=== PATIENT | male | born 1985 | race Caucasian/White ===

== ENCOUNTER 2024-12-16 10:01 | Outpatient (REF) | payer BC, SELFPAY ==
--- OUTSIDE RECORDS SUMMARY | 2024-12-16 10:59 | XMS_ITS | Clinical Summary ---
Author Organization [facility] Address [address] [place] [address] Care Team Providers Care Mastic Floor Layer Name Role Phone Unavailable Primary Care Provider Unavailabl e Social History Tobacco Use Types Packs/Day Years Used Date Smoking Tobacco: Never Assessed Sex and Gender Information Value Date Recorded Sex Assigned at Not on file Gender Identity Not on file Sexual Orientation Not on file Job Start Date Occupation Industry Not on file Not on file Not on file Plan of Treatment Health Maintenance Due Date Last Done Comments Hepatitis B Vaccines (1 of 3 - 3-dose series) 1987 Hepatitis C Screening 1987 Depression Screening 1999 Preventative Health Evaluation 2005 DTap / Tdap / Td (1 - Tdap) 2006 COVID-19 Vaccine (2023-2 5 season) 2024 10/25/2020 Influenza Vaccine (#1) 2024 07/19/2021 Pneumococcal Vaccine Aged Out No long er eligible based on patient's age to complete this topic RSV Ped < 20 months Aged Out No longe r eligible based on patient's age to complete this topic
== END 2024-12-16 10:02 | disposition home or self-care (01) ==
LOC: HO.BBR 10:01
PROVIDERS: PCP Internal Medicine; Visit Provider Urology
DX: D75.1 Secondary polycythemia (principal)
CPT/HCPCS: 85014; 85018; 99195

== ENCOUNTER 2025-03-20 09:58 | Outpatient (REF) | payer BC, SELFPAY ==
--- OUTSIDE RECORDS SUMMARY | 2025-03-20 11:03 | XMS_ITS | Clinical Summary ---
Author Organization [address] Address [address] [place] [id number] Phone Care Team Providers Care Blower And Compressor Assembler Name Role Phone Sami Haney MD Primary Care Provider [phone] Allergies Active Allergy Reactions Criticality Noted Date Comments Avocado Unknown 01/04/2022 Nut - Unspecified Hives 07/19/2021 Shellfish Derived Unknown 01/04/2022 Tree Nuts Hives 01/04/2022 Medications dupilumab (Dupixent Pen) 300 mg/2 mL pen Inject into the skin. Active testosterone cypionate (DEPO-TESTOTERO NE) 200 mg/mL injection INJECT 0.25 ML INTRAMUSCULAR ROUTE TWICE A WEEK Active albuterol HFA (PROAIR HFA ; PROVENTIL HFA ; VENTOLIN HFA) 90 mcg/actuation inhaler Inhale 2 puffs by mouth every 4 (four) hours if needed. 4 Active EPINEPHrine (EPIPEN) 0.3 mg/0.3 mL injection INJECT INTO OUTER THIGH NEEDED FOR ANAPHYLAXIS AND THEN CALL 911 4 Active tadalafiL (CIALIS) 20 mg tablet TAKE 1 TABLET BY MOUTH 1 HOUR BEFORE INTIMACY NEEDED 5 Active semaglutide (Wegovy) 0.25 mg/0.5 mL injection penIndications: Class 2 obesity due to excess calories without serious comorbidity with body mass index (BMI) of 35.0 to 35.9 in adult Inject 0.25 mg under the skin every 7 (seven) days. 2 mL 1 5 Active Active Problems Problem Noted Date Diagnosed Date Eosinophilic esophagitis 03/23/2023 Onychomycosis 03/04/2022 Immunizations Name Administration Dates Next Due Influenza Quadravalent, MDCK , 0.5ml, preservative free (Flucelvax) 6mo and older 07/19/2021 Influenza trivalent, MDCK, 0 .5mL, preservative free (Flucelvax) 6mo and older 08/21/2024 Influenza, Unspecified 05/31/2023 [employer] SARS-CoV-2 COVID -19, vector-nr, [id number], preservative free 10/25/2020 MMR, measles mumps and rubel la Live (Priorix; M-M-R II) 12mo and older 02/05/2024 Tdap Tetanus diptheria acell ular pertussis (Boostrix; Adacel) 7yo and older 05/03/2023,04/21/2023 Surgical History Surgery Date Site/Laterality Comments WRIST SURGERY 2017 Left PROCEDURE: HISTORICAL WRIST SURGERY Medical History Medical History Date Comments Mild intermittent asthma, uncomplicated DX:Mild intermittent asthma, uncomplicated Family History Medical History Relation Name Comments No Known Problems Father No Known Problems Maternal Grandmother No Known Problems Mother No Known Problems Sister Relation Name Status Comments Father Alive Maternal Grandfather Maternal Grandmother Alive Mother Alive Paternal Grandfather Paternal Grandmother Sister Alive Social History Tobacco Use Types Packs/Day Years Used Date Smoking Tobacco: Never Smokeless Tobacco: Never Tobacco Cessation:Counseling Given: Not Answered Alcohol Use Standard Drinks/Week Comments Yes 2 (1 standard drink = 0.6 oz pur e alcohol) Sex and Gender Information Value Date Recorded Sex Assigned at Not on file Legal Sex Male 10:42 AM EST Gender Identity Not on file Sexual Orientation Not on file Obstetrics History Last Filed Vital Signs Vital Sign Reading Time Taken Comments Blood Pressure 124/69 08/21/2024 9:04 AM EST Pulse 67 08/21/2024 9:04 AM EST Temperature - - Respiratory Rate - - Oxygen Saturation - - Inhaled Oxygen Concentration - - Weight 113 kg (250 lb) 08/21/2024 9:04 AM EST Height 177.8 cm (5' 10 ) 08/21/2024 9:04 AM EST Body Mass Index 35.87 08/21/2024 9:04 AM EST Plan of Treatment Health Maintenance Due Date Last Done Comments Hepatitis B Vaccines (1 of 3 - 19+ 3-dose series) 2006 HIV Screening 06/26/2022 Depression Screening 07/17/2024 Influenza Vaccine (#1) 2025 , 05/31/2023, 07/19/2021 Social Influencers of Health Screening 08/21/2025 08/21/2024 Cholesterol Screening (Lipid Panel) 08/21/2029 08/21/2024, 08/17/2023 DTaP,Tdap,and Td Vaccines (3 - Td or Tdap) 05/03/2033 05/03/2023, 04/21/2023 COVID-19 Vaccine Discontinued 08/06/2021, 10/25/2020 MMR Vaccines Aged Out 02/05/2024 No longer eligi ble based on patient's age to complete this topic Hepatitis C Screening Completed 08/22/2024 HIB Vaccines Aged Out No longer eligi ble based on patient's age to complete this topic HPV Vaccines Aged Out No longer eligi ble based on patient's age to complete this topic Hepatitis A Vaccines Aged Out No long er eligible based on patient's age to complete this topic IPV Vaccines Aged Out No longer eligi ble based on patient's age to complete this topic Meningococcal ACWY Vaccine Aged Out N o longer eligible based on patient's age to complete this topic Meningococcal B Vaccine Aged Out No l onger eligible based on patient's age to complete this topic Pneumococcal Vaccine: Pediatrics (0 to 5 Years) and At-Risk Patients (6 to 49 Years) Aged Out No longer eligible based on patient's age to complete this topic RSV Immunization Patients Under 20 months Aged Out No longer eligible based on patient's age to complete this topic Varicella Vaccines Aged Out No longer eligible based on patient's age to complete this topic Procedures Procedure Name Priority Date/Time Associated Diagnosis Comments CBC WITH AUTO DIFFERENTIAL Routine 01/13/2025 4:18 PM EDT Testicular hypofunction CBC AND DIFFERENTIAL Routine 01/13/2025 4:18 PM EDT Testicular hypofunction TESTOSTERONE FREE, BIOAVAILABLE AND TOTAL Routine 01/13/2025 4:18 PM EDT Testicular hypofunction HEPATITIS PANEL, ACUTE WITH REFLEX TO CONFIRMATION Routine 08/22/2024 11:23 AM EST Screen for STD (sexually transmitted disease) Transaminitis LIPID PANEL WITH REFLEX TO DIRECT LDL Routine 08/21/2024 10:35 AM EST Class 2 obesity due to excess calories without serious comorbidity with body mass index (BMI) of 35.0 to 35.9 in adult from Last 3 Months or Most Recently Relevant to Health Maintenance Results * (ABNORMAL) Testosterone free, bioavailable and total (01/13/2025 4:18 PM EDT) Testosterone >1,500(H ) 229 - 902 ng/dL LAB CHEMISTRY METHOD 01/13/2025 8:54 PM EDT [facility] Comment:Results verified by repeat testing Testosterone, Free LAB CHEMISTRY METHOD 01/13/2025 8:54 PM [facility] Comment:Unable to Calculate Testosterone, Bioavailable LAB CHEMISTRY METHOD 01/13/2025 8:54 PM T [facility] Comment:Unable to Calculate Sex Hormone Binding 10.3 See Comment nmol/L LAB CHEMISTRY METHOD 01/13/2025 8:54 PM EDT [facility] Comment: FEMALES: pre-menopausal 10.8 - >180 post-menopausal 23.2 - 159.1 MALES: 21-49 years 14.6 - 94.6 50-89 years 21.6 - 113.1 CHILDREN: No established reference range Over the counter supplements containing high doses of biotin may interfere with this assay. If interference is suspected, patients should be retested after refraining from biotin supplements for 72 hours. Albumin 4.3 3.2 - 5.0 g/dL LAB CHEMISTRY METHOD 01/13/2025 8:54 PM EDT [facility] Blood Venous blood specimen / Unknown Venipuncture / Unknown 01/13/2025 4:18 PM EDT 01/13/2025 4:18 PM EDT us Serena A Josefina FORM MAKER LAB BLOOD ORDERABLES Adelina l Result [facility] [address] [place] [address], * (ABNORMAL) CBC auto differential (01/13/2025 4:18 PM EDT) [facility] Signature WBC 10.3 4.8 - 10.8 K/mcL LAB HEMETOLOGY METHOD 01/13/2025 6:29 PM EDT [facility] RBC 5.90(H) 4.50 - 5.50 M/mcL LAB HEMETOLOGY METHOD 01/13/2025 6:29 PM EDT [facility] Hemoglobin 16.6 13.5 - 17.5 g/dL LAB HEMETOLOGY METHOD 01/13/2025 6:29 PM EDT [facility] Hematocrit 50.7 42.0 - 54.0 % LAB HEMETOLOGY METHOD 01/13/2025 6:29 PM EDT [facility] MCV 86.7 79.0 - 98.0 FL LAB HEMETOLOGY METHOD 01/13/2025 6:29 PM EDT [facility] MCH 28.4 27.0 - 32.0 pcg LAB HEMETOLOGY METHOD 01/13/2025 6:29 PM EDT [facility] MCHC 32.7 32.0 - 37.0 g/dL LAB HEMETOLOGY METHOD 01/13/2025 6:29 PM EDT [facility] RDW 12.7 11.0 - 15.0 % LAB HEMETOLOGY METHOD 01/13/2025 6:29 PM EDT [facility] Platelets 244 130 - 400 K/mcL LAB HEMETOLOGY METHOD 01/13/2025 6:29 PM EDT [facility] MPV 10.8 7.0 - 11.0 FL LAB HEMETOLOGY METHOD 01/13/2025 6:29 PM EDT [facility] NRBC 0.0 <1.0 % LAB [facility]OLOGY [facility] NR[facility] Absolute 0.00 <0.10 K/mcL LAB HEMETOLOGY METHOD 01/13/2025 6:29 PM [facility] Neutrophils Relative 70.0 % LAB HEMETOLOGY METHOD 01/13/2025 6:29 PM [facility] Lymphocytes Relative 15.3 % LAB HEMETOLOGY METHOD 01/13/2025 6:29 PM [facility] Monocytes Relative 9.9 % LAB HEMETOLOGY METHOD 01/13/2025 6:29 PM [facility] Eosinophils Relative 3.8 % LAB HEMETOLOGY METHOD 01/13/2025 6:29 PM [facility] Basophils Relative 0.5 % LAB HEMETOLOGY METHOD 01/13/2025 6:29 PM [facility] Immature Granulocytes Relative 0.5 % LAB HEMETOLOGY METHOD 01/13/2025 6:29 PM [facility] Neutrophils Absolute 7.24(H) 1.50 - 7.00 K/mcL LAB HEMETOLOGY METHOD 01/13/2025 6:29 PM [facility] Lymphocytes Absolute 1.58 1.00 - 5.00 K/mcL LAB HEMETOLOGY METHOD 01/13/2025 6:29 PM [facility] Monocytes Absolute 1.02(H) 0.20 - 1.00 K/mcL LAB HEMETOLOGY METHOD 01/13/2025 6:29 PM [facility] Eosinophils Absolute 0.39 0.00 - 0.50 K/mcL LAB HEMETOLOGY METHOD 01/13/2025 6:29 PM [facility] Basophils Absolute 0.05 0.00 - 0.20 K/mcL LAB HEMETOLOGY METHOD 01/13/2025 6:29 PM EDT [facility] Immature Granulocytes Absolute 0.05(H) 0.00 - 0.03 K/mcL LAB HEMETOLOGY METHOD 01/13/2025 6:29 PM EDT [facility] Blood Venous blood specimen / Unknown Venipuncture / Unknown 01/13/2025 4:18 PM EDT 01/13/2025 4:18 PM EDT Serena Rocha FORM MAKER LAB BLOOD ORDERABLES Adelina l Result Performing Organization Address City/[facility]/ZIP Co de Phone Number [facility] [address] [place] [address], [place] [phone] * Hepatitis panel, acute with reflex to confirmation (08/22/2024 11:23 AM EST) Hepatitis B Surface Ag Negative Negative LAB CHEMISTRY METHOD 08/22/2024 3:36 PM EST [facility] Hepatitis A Antibody IgM Negative Negative LAB CHEMISTRY METHOD 08/22/2024 3:36 PM EST [facility] Hep B Core IgM Negative Negative LAB CHEMISTRY METHOD 08/22/2024 3:36 PM EST [facility] Hepatitis C Antibody Negative Negative LAB CHEMISTRY METHOD 08/22/2024 3:36 PM EST [facility] Blood Venous blood specimen / Unknown Venipuncture / Unknown 08/22/2024 11:23 AM EST 08/22/2024 11:23 AM EST Sami Haney MD LAB BLOOD ORDERABLES Final Resu lt [facility] [address] [place] [address], [place] [phone] * (ABNORMAL) Lipid panel with reflex to direct LDL (08/21/2024 10:35 AM EST) Cholesterol 197 0 - 200 mg/dL LAB CHEMISTRY METHOD 08/21/2024 7:02 PM [facility] Triglycerides 107 0 - 150 mg/dL LAB CHEMISTRY METHOD 08/21/2024 7:02 PM [facility] HDL 51 >=40 mg/dL LAB CHEMISTRY METHOD 08/21/2024 7:02 PM [facility] LDL Calculated 125(H) 0 - 100 mg/dL LAB CHEMISTRY METHOD 08/21/2024 7:02 PM [facility] VLDL Cholesterol Wilmer 21.4 mg/dL LAB CHEMISTRY METHOD 08/21/2024 7:02 PM [facility] Non HDL Chol. (LDL+VLDL) 146(H) <145 mg/dL LAB CHEMISTRY METHOD 08/21/2024 7:02 PM [facility] Chol/HDL Ratio 3.9 0.0 - 4.4 LAB CHEMISTRY METHOD 08/21/2024 7:02 PM [facility] Blood Venous blood specimen / Unknown Venipuncture / Unknown 08/21/2024 10:35 AM EST 08/21/2024 10:35 AM EST Sami Haney MD LAB BLOOD ORDERABLES Final Resu lt [facility] [address] [place] [address], from Last 3 Months or Most Recently Relevant to Health Maintenance Insurance [facility] Care Teams Blower And Compressor Assembler Relationship Specialty Start Date End Date Sami Haney MD [address] [place], [place] [address]sus[place] [address] PCP - General Internal Medicine 07/05/21
--- OUTSIDE RECORDS SUMMARY | 2025-03-20 11:03 | XMS_ITS ---
Author Name [facility] ([place], [place]) Organization Unknown Results Test Name/Text Value Interpretation Date Range Source BETA-HCG QUANT TUMOR MARKER 16.0 IU/L Above high normal 06/16 0 - 3 [facility] TESTOSTERONE 733.0 ng/dL Normal 06/29/2023 175 - 800 [facility] LUTEINIZING HORMONE 0.42 mIU/mL Normal 06/29/2023 [facility] FOLLICLE STIM HORMONE 2.79 mIU/mL Normal 06/29/2023 [facility] ESTRADIOL 58.0 pg/mL Normal 06/29/2023 [facility] Problems Problem Status Onset Date Problem Type Date of Resoluti on Source Low testosterone active 2023-06-29 ProblemAct C [facility] Encounters Encounter Type Encounter Reason Primary Diagnosis Location Date Ambulatory Other specified abnormal findings of blo Other specified abnormal findings of blood chemistry [facility] 07/06/2023 Ambulatory Testicular hypofunction Testicular hypofunction [facility] 06/29/2023 Ambulatory Testicular hypofunction Testicular hypofunction [facility] 06/29/2023 Care Team Organization Name Specialty Phone Email Start Date End Da te [facility] NO PCP Primary Care 06/29/2023 [facility] Jared Rushing Primary Care 11/21/202203/04 [facility] Sherie Marshall Primary Care 09/21/202202/14 [facility] Dana Freeman Primary Care 05/24/202202/14
--- OUTSIDE RECORDS SUMMARY | 2025-03-20 11:03 | XMS_ITS | Clinical Summary ---
Author Organization [facility] Address [address] [place] [address] Care Team Providers Care Bicycle Ii Assembler Name Role Phone Unavailable Primary Care Provider [...] Td (1 - Tdap) 2006 COVID-19 Vaccine ( - 2024-2 6 season) 2025 10/25/2020 Influenza Vaccine (#1) 2025 07/19/2021 Pneumococcal Vaccine Aged Out No long er eligible based on patient's age to complete this topic RSV Ped < 20 months Aged Out No longe r eligible based on patient's age to complete this topic
--- OUTSIDE RECORDS SUMMARY | 2025-03-20 11:03 | XMS_ITS | Clinical Summary ---
Author Organization [facility] Address [address] [place] [address] Care Team Providers Care Tip Cementer Name Role Phone Pcp, No MD Primary Care Provider Unavailabl e Medications clomiPHENE (CLOMID) 50 mg tablet Take 1 tablet by mouth in the morning. 04/28/2023 Active chorionic gonadotropin (PREGNYL) 10,000 unit injection 05/18/2023 Acti ve Active Problems Problem Noted Date Diagnosed Date Low testosterone 06/29/2023 Social History Tobacco Use Types Packs/Day Years Used Date Smoking Tobacco: Never Smokeless Tobacco: Never Tobacco Cessation:Counseling Given: Not Answered Sex and Gender Information Value Date Recorded Sex Assigned at Not on file Legal Sex Male 12:25 PM EDT Gender Identity Not on file Sexual Orientation Not on file Last Filed Vital Signs Vital Sign Reading Time Taken Comments Blood Pressure 125/74 06/29/2023 10:02 AM EST Pulse 78 06/29/2023 10:02 AM EST Temperature - - Respiratory Rate - - Oxygen Saturation - - Inhaled Oxygen Concentration - - Weight 104 kg (230 lb) 07/06/2023 12:00 PM EST Height 177.8 cm (5' 10 ) 07/06/2023 12:00 PM EST Body Mass Index 33 07/06/2023 12:00 PM EST Plan of Treatment Health Maintenance Due Date Last Done Comments HIV Screening 1987 Hepatitis C Screening 2005 Hepatitis B Vaccines (1 of 3 - 19+ 3-dose series) 2006 COVID-19 Vaccine (2 - 2024-2 6 season) 2025 10/25/2020 Influenza Vaccine (#1) 2025 08/17/2022 DTaP,Tdap,and Td Vaccines (2 - Td or Tdap) 04/21/2033 04/21/2023 Zoster Vaccines (1 of 2) 2037 HPV Vaccines Aged Out No longer eligi ble based on patient's age to complete this topic Hepatitis A Vaccines Aged Out No long er eligible based on patient's age to complete this topic MMR Vaccines Aged Out No longer eligi ble based on patient's age to complete this topic Meningococcal Vaccine Aged Out No shauna chaitanya eligible based on patient's age to complete this topic Pneumococcal Vaccine: Pediat rics (0 to 5 Years) and At-Risk Patients (6 to 49 Years) Aged Out No longer eligi ble based on patient's age to complete this topic Insurance [employer] - OUT OF STATE Care Teams Tip Cementer Relationship Specialty Start Date End Date Jessica Samuels MD [address] [place] [address] PCP - General Internal Medicine 06/28/23
--- OUTSIDE RECORDS SUMMARY | 2025-03-20 11:03 | XMS_ITS | Encounter Summary ---
Author Organization [facility] Address [address] [place] [address] Care Team Providers Care Adjustment Clerk Name Role Phone Sami Haney MD Primary Care Provider [phone] Encounter Details Date Type Department Care Team (Late st Contact Info) Description 12/02/2024 Lab Requisition [facility] - Main Lab [address] [facility] [place] [address] Suzette Ferreira MD [address] [place] [address] Testicular hypofunction; Benign prostatic hyperplasia without lower urinary tract symptoms Social History Tobacco Use Types Packs/Day Years Used Date Smoking Tobacco: Never Smokeless Tobacco: Never Alcohol Use Standard Drinks/Week Comments Yes 2 (1 standard drink = 0.6 oz pur e alcohol) Sex and Gender Information Value Date Recorded Sex Assigned at Not on file Legal Sex Male 10:42 AM EST Gender Identity Not on file Sexual Orientation Not on file documented as of this encounter Plan of Treatment Not on file documented as of this encounter Procedures Procedure Name Priority Date/Time Associated Diagnosis Comments ESTRADIOL, ULTRASENSITIVE Routine 12/02/2024 9:30 AM EDT Testicular hypofunction Benign prostatic hyperplasia without lower urinary tract symptoms TESTOSTERONE FREE, BIOAVAILABLE AND TOTAL Routine 12/02/2024 9:30 AM EDT Testicular hypofunction Benign prostatic hyperplasia without lower urinary tract symptoms PROSTATE SPECIFIC ANTIGEN DIAGNOSTIC Routine 12/02/2024 9:30 AM EDT Testicular hypofunction Benign prostatic hyperplasia without lower urinary tract symptoms COMPLETE BLOOD COUNT Routine 12/02/2024 9:30 AM EDT Testicular hypofunction Benign prostatic hyperplasia without lower urinary tract symptoms HEPATIC FUNCTION PANEL Routine 9:30 AM EDT Testicular hypofunction Benign prostatic hyperplasia without lower urinary tract symptoms documented in this encounter Results * Hepatic function panel (12/02/2024 9:30 AM EDT) Total Protein 7.0 6.0 - 8.0 g/dL LAB CHEMISTRY METHOD 12/02/2024 2:53 PM EDT [facility] Albumin 3.8 3.2 - 5.0 g/dL LAB CHEMISTRY METHOD 12/02/2024 2:53 PM [facility] Total Bilirubin 1.1 0.0 - 1.4 mg/dL LAB CHEMISTRY METHOD 12/02/2024 2:53 PM [facility] Bilirubin, Direct 0.3 0.0 - 0.3 mg/dL LAB CHEMISTRY METHOD 12/02/2024 2:53 PM T [facility] Bilirubin, Indirect 0.8 0.0 - 1.1 mg/dL LAB CHEMISTRY METHOD 12/02/2024 2:53 PM [facility] ALT (SGPT) 45 10 - 60 unit/L LAB CHEMISTRY METHOD 12/02/2024 2:53 PM [facility] AST (SGOT) 22 10 - 42 unit/L LAB CHEMISTRY METHOD 12/02/2024 2:53 PM [facility] Alkaline Phosphatase 58 42 - 121 unit/L LAB CHEMISTRY METHOD 12/02/2024 2:53 PM [facility] Blood Venous blood specimen / Unknown 12/02/2024 9:30 AM EDT 12/02/2024 12:24 PM EDT us Suzette Ferreira MD LAB BLOOD ORDERABLES Fin al Result [facility] [address] [place] [address], * Prostate specific antigen diagnostic (12/02/2024 9:30 AM EDT) PSA 0.97 0.00 - 4.00 ng/mL LAB CHEMISTRY METHOD 12/02/2024 4:22 PM EDT [facility] Blood Venous blood specimen / Unknown 12/02/2024 9:30 AM EDT 12/02/2024 12:24 PM EDT Narrative [facility] - 12/02/2024 4:22 PM EDT The Siemens [employer]ia HealthSynchaur Chemiluminescent Immunoassay is used. Results obtained with different assay methods or kits cannot be used interchangeably. Results cannot be interpreted as absolute evidence of the presence or absence of malignant disease. Suzette Ferreira MD LAB BLOOD ORDERABLES Fin al Result Performing Organization Address [facility] Co de Phone Number [facility] [address] [place] [address], * (ABNORMAL) Estradiol, ultrasensitive (12/02/2024 9:30 AM EDT) Estradiol 85.9(H) 8.0 - 35.0 pg/mL 12/08/2024 9:05 PM EDT [facility] Comment:Methodology: Liquid chromatography tandem mass spectrometry(LC/MS/MS) Blood Venous blood specimen / Unknown 12/02/2024 9:30 AM EDT 12/02/2024 12:24 PM EDT Narrative [facility] - 12/08/2024 9:05 PM EDT Test(s) [id number], Sensitive was developed and its performance characteristics determined by [facility]. It has not been cleared or approved by the Food and Drug Administration. Performed at: 01 - [address] [id number] Stick Puller: Maeve Bass MD, Phone: [phone] us Suzette Ferreira MD LAB BLOOD ORDERABLES Fin al Result [facility] * (ABNORMAL) Complete blood count (12/02/2024 9:30 AM EDT) [facility] WBC 9.5 4.8 - 10.8 K/mcL LAB HEMETOLOGY METHOD 12/02/2024 2:46 PM EDT [facility] RBC 6.00(H) 4.50 - 5.50 M/mcL LAB HEMETOLOGY METHOD 12/02/2024 2:46 PM EDT [facility] Hemoglobin 17.2 13.5 - 17.5 g/dL LAB HEMETOLOGY METHOD 12/02/2024 2:46 PM EDT [facility] Hematocrit 53.7 42.0 - 54.0 % LAB HEMETOLOGY METHOD 12/02/2024 2:46 PM EDT [facility] MCV 90.3 79.0 - 98.0 FL LAB HEMETOLOGY METHOD 12/02/2024 2:46 PM EDT [facility] MCH 28.9 27.0 - 32.0 pcg LAB HEMETOLOGY METHOD 12/02/2024 2:46 PM EDT [facility] MCHC 32.0 32.0 - 37.0 g/dL LAB HEMETOLOGY METHOD 12/02/2024 2:46 PM EDT [facility] RDW 13.0 11.0 - 15.0 % LAB HEMETOLOGY METHOD 12/02/2024 2:46 PM EDT [facility] Platelets 232 130 - 400 K/mcL LAB HEMETOLOGY METHOD 12/02/2024 2:46 PM EDT [facility] MPV 11.3(H) 7.0 - 11.0 FL LAB HEMETOLOGY METHOD 12/02/2024 2:46 PM EDT [facility] NRBC 0.0 <1.0 % LAB HEMETOLOGY METHOD 12/02/2024 2:46 PM EDT [facility] NRBC Absolute 0.00 <0.10 K/mcL LAB HEMETOLOGY METHOD 12/02/2024 2:46 PM EDT [facility] Blood Venous blood specimen / Unknown 12/02/2024 9:30 AM EDT 12/02/2024 12:24 PM EDT us Suzette Ferreira MD LAB BLOOD ORDERABLES Fin al Result [facility] [address] [place] [address], * (ABNORMAL) Testosterone free, bioavailable and total (12/02/2024 9:30 AM EDT) Testosterone 1,432(H) 229 - 902 ng/dL LAB CHEMISTRY METHOD 12/02/2024 7:28 PM EDT [facility] Comment:Results verified by repeat testing Testosterone, Free 59.3(H) 4.6 - 22.4 ng/dL LAB CHEMISTRY METHOD 12/02/2024 7:28 PM [facility] Testosterone, Bioavailable 1,235(H) 110 - 575 ng/dL LAB CHEMISTRY METHOD 12/02/2024 7:28 PM [facility] Sex Hormone Binding 10.2 See Comment nmol/L LAB CHEMISTRY METHOD 12/02/2024 7:28 PM [facility] Comment: FEMALES: pre-menopausal 10.8 - >180 post-menopausal 23.2 - 159.1 MALES: 21-49 years 14.6 - 94.6 50-89 years 21.6 - 113.1 CHILDREN: No established reference range Over the counter supplements containing high doses of biotin may interfere with this assay. If interference is suspected, patients should be retested after refraining from biotin supplements for 72 hours. Albumin 3.8 3.2 - 5.0 g/dL LAB CHEMISTRY METHOD 12/02/2024 7:28 PM EDT [facility] Blood Venous blood specimen / Unknown 12/02/2024 9:30 AM EDT 12/02/2024 12:24 PM EDT us Suzette Ferreira MD LAB BLOOD ORDERABLES Fin al Result [facility] [address] [place] [address], documented in this encounter Visit Diagnoses Diagnosis Testicular hypofunction Other testicular hypofunction Benign prostatic hyperplasia without lower urinary tract symptoms documented in this encounter Care Teams Adjustment Clerk Relationship Specialty Start Date End Date Sami Haney MD [address] [facility] [place] [address] PCP - General Internal Medicine 07/05/21 documented as of this encounter
== END 2025-03-20 09:59 | disposition home or self-care (01) ==
LOC: HO.BBR 09:58
PROVIDERS: PCP Internal Medicine Hematology & Oncology; Visit Provider Urology
DX: D75.1 Secondary polycythemia (principal)
CPT/HCPCS: 85018; 99195